=== PATIENT | male | born 1965 | race Caucasian/White ===

== ENCOUNTER 2020-12-12 15:30 | Inpatient (IN) ==
[2020-12-12] MEDS ORDERED: *HR* Metoprolol 5 MG/5 ML VIAL IVP STA ×3 (16:00→17:34)
[2020-12-12] MEDS ORDERED: 0.9 % Sodium Chloride 500 ML IVC ONE (16:57)
[2020-12-12] MEDS ORDERED: Isovue-370 500 ML BOTTLE IVP ONE (16:58)
[2020-12-12 17:12] LABS: Basophils # 0.1 K/mcL (0.0-0.2); Basophils % 0.5 %; Eosinophils # 0.3 K/mcL (0.0-0.6); Eosinophils % 2.2 %; Hemoglobin 16.3 g/dL (12.9-16.9); Immature Granulocytes % 0.4 % (0-4); Immature Platelets 15.6 % (1.1-6.1); Lymphocytes # 2.3 K/mcL (0.6-4.6); Mean Corpuscular HGB Conc 31.3 g/dL (31.6-35.5); Mean Corpuscular Hemoglobin 29.3 pg (28.0-33.3); Mean Corpuscular Volume 93.5 fL (83.0-100.0); Mean Platelet Volume 13.2 fL (9.4-12.4); Monocytes % 7.8 %; Platelet Count 238 K/mcL (140-400); Red Blood Count 5.56 M/mcL (4.19-5.50); Red Cell Distribution Width 13.2 % (11.5-14.5); Segmented Neutrophils % 71.1 %; White Blood Count 12.6 K/mcL (4.3-11.1)
[2020-12-12 17:32] LABS: Alanine Aminotransferase 28 Units/L (7-52); Albumin 4.3 g/dL (3.5-5.7); Albumin/Globulin Ratio 1.7 (1.1-2.2); Alkaline Phosphatase 127 Units/L (34-104); Aspartate Amino Transferase 21 Units/L (13-39); BUN/Creatinine Ratio 12 (6-26); Bilirubin,Direct 0.9 mg/dL (0.0-0.2); Bilirubin,Indirect 1.7 mg/dL (0.0-1.0); Bilirubin,Total 2.6 mg/dL (0.3-1.0); Blood Urea Nitrogen 18 mg/dL (6-20); Calcium 9.6 mg/dL (8.6-10.3); Carbon Dioxide 22 mEq/L (23-29); Chloride 101 mEq/L (98-107); Globulin 2.5 g/dL (2.4-3.5); Glucose 252 mg/dL (70-105); Osmolality,Calculated 290 (280-300); Potassium 4.4 mEq/L (3.5-5.1); Sodium 135 mEq/L (136-145); Total Protein 6.8 g/dL (6.4-8.9); eGFR For African Americans 59 (> 60); eGFR For Non-African Americans 49 (> 60)
[2020-12-12] MEDS ORDERED: Ondansetron 4 MG/2 ML VIAL IVP STA (17:36)
[2020-12-12 17:40] LABS: Troponin I < 0.03 ng/mL (< 0.04)
[2020-12-12] MEDS ORDERED: Furosemide 40 MG/4 ML VIAL IVP ONE (17:46)
[2020-12-12] MEDS: DilTIAZem 50 MG/50 ML IV.SOLN IVC SCH ×2 (18:51→23:39)
[2020-12-12 20:54] LABS: INR 1.4
[2020-12-12 21:07] LABS: Acetaminophen < 10 mcg/mL (10-20); Salicylate < 2.5 mg/dL (15.0-30.0)
[2020-12-12] MEDS ORDERED: Ondansetron 4 MG/2 ML VIAL IVP PRN (21:08)
[2020-12-12] MEDS ORDERED: Melatonin 3 MG TABLET PO PRN (21:08)
[2020-12-12] MEDS ORDERED: *HR* Promethazine 25 MG/ML VIAL IM PRN (21:08)
[2020-12-12] MEDS ORDERED: *HR* OxyCODONE Immed Rel 5 MG TABLET PO PRN (21:08)
[2020-12-12] MEDS ORDERED: Naloxone 0.4 MG/ML INJ IVP PRN (21:08)
[2020-12-12] MEDS ORDERED: Acetaminophen 325 MG TABLET PO PRN (21:08)
[2020-12-12] MEDS ORDERED: *HR* Heparin 5,000 UNIT/ML VIAL IVP ONE (21:33)
[2020-12-12] MEDS ORDERED: *HR* Heparin 5,000 UNIT/ML VIAL IVP PRN ×2 (21:33)
[2020-12-12] MEDS ORDERED: Dextrose Gel 15 GM/37.5 ML TUBE PO PRN ×2 (21:35)
[2020-12-12] MEDS ORDERED: *HR* Dextrose 50 % in Water (Vial) 50 ML VIAL IVP PRN (21:35)
[2020-12-12] MEDS ORDERED: D5% in Water 1,000 ML IVC PRN (21:35)
[2020-12-12] MEDS ORDERED: Perflutren Lipid Microsphere 1.3 ML in 0.9 % Sodium Chloride 8.7 ML IVP PRN (21:40)
[2020-12-12] MEDS: Insulin LISPRO 300 UNITS/3 ML VIAL SUBQ SCH (23:47)
[2020-12-12] MEDS: *HR* HYDROcodone/Acet 5/325 mg TABLET PO PRN (23:47)
[2020-12-13] MEDS: Albumin 25% 25gram/100mL 25 GM/100 ML IV.SOLN IVC SCH ×4 (00:57→05:04)
[2020-12-13] MEDS: Heparin 25,000UNIT/250ML 1/2NS 25,000 UNIT/250 ML IV.SOLN IVC SCH ×2 (00:58→20:17)
[2020-12-13 01:17] LABS: Hematocrit 51.2 % (37.5-50.1); Mean Corpuscular HGB Conc 31.3 g/dL (31.6-35.5); Mean Corpuscular Hemoglobin 29.2 pg (28.0-33.3); Mean Corpuscular Volume 93.4 fL (83.0-100.0); Mean Platelet Volume 12.7 fL (9.4-12.4); Platelet Count 263 K/mcL (140-400); Red Blood Count 5.48 M/mcL (4.19-5.50); Red Cell Distribution Width 13.2 % (11.5-14.5); White Blood Count 14.3 K/mcL (4.3-11.1)
[2020-12-13 01:25] LABS: Heparin anti-factor XA UFH 0.04 IU/mL (0.30-0.70); INR 1.5; Prothrombin Time 16.6 Seconds (9.4-12.1)
[2020-12-13 04:06] LABS: Basophils % 0.2 %; Mean Corpuscular HGB Conc 31.3 g/dL (31.6-35.5); Red Cell Distribution Width 13.3 % (11.5-14.5)
[2020-12-13 04:07] LABS: Eosinophils % 0.1 %; Hematocrit 50.4 % (37.5-50.1); Hemoglobin 15.8 g/dL (12.9-16.9); Immature Granulocytes % 0.6 % (0-4); Immature Platelets 14.6 % (1.1-6.1); Lymphocytes # 1.6 K/mcL (0.6-4.6); Mean Corpuscular Hemoglobin 29.6 pg (28.0-33.3); Mean Corpuscular Volume 94.4 fL (83.0-100.0); Mean Platelet Volume 13.1 fL (9.4-12.4); Monocytes # 1.4 K/mcL (0.0-1.3); Monocytes % 8.7 %; Neutrophils # 12.8 K/mcL (1.6-8.9); Platelet Count 255 K/mcL (140-400); Red Blood Count 5.34 M/mcL (4.19-5.50); Segmented Neutrophils % 80.4 %; White Blood Count 15.9 K/mcL (4.3-11.1)
[2020-12-13 04:21] LABS: INR 1.7; Prothrombin Time 19.2 Seconds (9.4-12.1)
[2020-12-13 06:16] LABS: Albumin 4.1 g/dL (3.5-5.7); Albumin/Globulin Ratio 1.9 (1.1-2.2); Calcium 9.1 mg/dL (8.6-10.3); Chol/HDL Ratio 4.5 (0-4.9); Globulin 2.2 g/dL (2.4-3.5); Magnesium 1.8 mg/dL (1.6-2.6); Phosphorous 5.2 mg/dL (2.7-4.5); Potassium 5.9 mEq/L (3.5-5.1); Total Protein 6.3 g/dL (6.4-8.9)
[2020-12-13] MEDS ORDERED: *HR* Dextrose 50 % in Water (Vial) 50 ML VIAL IVP ONE (06:54)
[2020-12-13] MEDS ORDERED: Insulin Human Regular 10 UNIT in 0.9 % Sodium Chloride 10 ML IV ONE (06:54)
[2020-12-13] MEDS ORDERED: Octreotide 50 MCG/ML INJ IVP ONE (06:58)
[2020-12-13] MEDS ORDERED: Insulin DETEMIR 100 UNIT/ML X5UNITS SUBQ ONE (07:28)
[2020-12-13] MEDS ORDERED: Insulin LISPRO 300 UNITS/3 ML VIAL SUBQ SCH ×2 (07:30→21:00)
[2020-12-13] MEDS ORDERED: Albumin 25% 25gram/100mL 25 GM/100 ML IV.SOLN IVPB SCH (08:00)
[2020-12-13] MEDS: Octreotide 400 MCG in 0.9 % Sodium Chloride 100 ML IVC SCH ×2 (11:09→17:53)
[2020-12-13] MEDS: SODIUM ZIRCONIUM CYCLOSILICATE 5 GM POWD.PACK PO SCH ×2 (11:21→21:45)
[2020-12-13] MEDS: Albumin 25% 25gram/100mL 25 GM/100 ML IV.SOLN IVPB SCH ×4 (11:22→20:13)
[2020-12-13] MEDS: Insulin LISPRO 300 UNITS/3 ML VIAL SUBQ SCH ×3 (11:35→20:36)
[2020-12-13 12:37] LABS: Estimated Average Glucose 217 mg/dl; Hemoglobin A1C 9.2 %
[2020-12-13 13:00] LABS: Thyroid Stimulating Hormone 4.144 mcIU/mL (0.340-5.600)
[2020-12-13] MEDS ORDERED: cefTRIAXone 1,000 MG in Water for inj. (sterile) 10 ML IVP SCH (13:00)
[2020-12-13 13:10] LABS: Hepatitis B Surface Antigen Nonreactive (Nonreactive)
[2020-12-13 13:12] LABS: Bacteria,Urine Few per hpf (None-Few); Bilirubin,Urine Small (Negative); Blood,Urine Negative (Negative); Clarity,Urine Turbid (Clear); Color,Urine Yellow (Yellow); Glucose,Urine (UA) 30 mg/dL (Normal); Hyaline Casts,Urine Few per lpf (None Seen); Ketones,Urine Negative (Negative); Leukocyte Esterase,Urine Negative (Negative); Mucus,Urine Few per lpf (None-Few); Nitrite,Urine Negative (Negative); PH,Urine 5.5 pH Units (5.0-8.0); Protein,Urine 100 mg/dL (Neg-Trace); Specific Gravity,Urine > 1.030 (1.010-1.025); Sperm,Urine Present per hpf (None Seen); Squamous Epithelial Cell,Urine Few per hpf (None-Few)
[2020-12-13 13:39] LABS: Hepatitis A Antibody IgM Nonreactive (Nonreactive); Hepatitis B Core IgM Nonreactive (Nonreactive); Hepatitis C Virus Antibody Nonreactive (Nonreactive)
[2020-12-13] MEDS: DilTIAZem SR (12hr) 60 MG CAP.ER.12H PO SCH ×2 (14:23→21:05)
[2020-12-13] MEDS: *HR* HYDROcodone/Acet 5/325 mg TABLET PO PRN (14:50)
[2020-12-13 14:58] LABS: Protein/Creatinine Ratio,Urine 0.8 mg/mg (0.00-0.20); Sodium, Urine 16.8 mEq/L
[2020-12-13 15:03] LABS: Total Protein,Peritoneal Fluid 3.2 g/dL
[2020-12-13 15:09] LABS: RBC,Peritoneal Fluid < 2000 RBC/mcL
[2020-12-13 16:05] LABS: Basophils,Peritoneal Fluid 0 %
[2020-12-13 16:06] LABS: Appearance of Peritoneal Fl CLEAR (Clear)
[2020-12-13] MEDS ORDERED: 0.9 % Sodium Chloride 500 ML IVC SCH (16:30)
[2020-12-13] MEDS: *HR* Heparin 5,000 UNIT/ML VIAL SQ SCH (17:02)
[2020-12-13] MEDS ORDERED: Ipratropium/Albuterol Neb 3 ML ONE (20:10)
[2020-12-13] MEDS ORDERED: Ipratropium/Albuterol Neb 3 ML IH ONE (20:11)
[2020-12-13 20:56] LABS: VBG HCO3 16 mEq/L (21-27); VBG PCO2 37 mmHg (41-51); VBG PH 7.23 pH Units (7.32-7.42); VBG PO2 59 mmHg (25-50)
[2020-12-13 20:57] LABS: Hematocrit 50.7 % (37.5-50.1); Hemoglobin 15.5 g/dL (12.9-16.9); Mean Corpuscular HGB Conc 30.6 g/dL (31.6-35.5); Mean Corpuscular Hemoglobin 29.8 pg (28.0-33.3); Mean Corpuscular Volume 97.5 fL (83.0-100.0); Mean Platelet Volume 12.9 fL (9.4-12.4); Platelet Count 240 K/mcL (140-400); Red Cell Distribution Width 13.6 % (11.5-14.5); White Blood Count 20.5 K/mcL (4.3-11.1)
[2020-12-13] MEDS ORDERED: 0.9 % Sodium Chloride 1,000 ML ONE (21:04)
[2020-12-13] MEDS ORDERED: *HR* LORazepam 2 MG/ML VIAL ONE (22:27)
[2020-12-13] MEDS ORDERED: *HR* LORazepam 2 MG/ML VIAL IVP ONE (22:48)
[2020-12-13] MEDS: Norepinephrine 4 MG/254 ML IV.SOLN IVC SCH (23:50)
[2020-12-13 23:58] LABS: Calcium 8.8 mg/dL (8.6-10.3); Potassium 5.6 mEq/L (3.5-5.1)
[2020-12-14 00:10] LABS: Troponin I 0.04 ng/mL (< 0.04)
[2020-12-14 00:22] LABS: ABG Base Excess -9 mEq/L (-2 to 3); ABG HCO3 15 mEq/L (21-27); ABG Oxygen Saturation 88 % (95-98); ABG PCO2 28 mmHg (35-45); ABG PH 7.34 pH Units (7.32-7.45); ABG PO2 58 mmHg (85-104); ABG TCO2 16 mEq/L (20-26)
[2020-12-14] MEDS: Albumin 25% 25gram/100mL 25 GM/100 ML IV.SOLN IVPB SCH ×3 (00:33→07:25)
[2020-12-14] MEDS: Octreotide 400 MCG in 0.9 % Sodium Chloride 100 ML IVC SCH ×2 (00:36→09:54)
[2020-12-14] MEDS ORDERED: Vancomycin 2,000 MG/520 ML IV.SOLN IVPB ONE (02:00)
[2020-12-14 04:25] VITALS: TEMP 98.4
[2020-12-14] MEDS: Norepinephrine 4 MG/254 ML IV.SOLN IVC SCH (05:04)
[2020-12-14] MEDS: *HR* Heparin 5,000 UNIT/ML VIAL SQ SCH (05:14)
[2020-12-14 05:55] LABS: Basophils % 0.2 %; Eosinophils % 0.2 %
[2020-12-14 05:57] LABS: Basophils # 0.1 K/mcL (0.0-0.2); Hematocrit 49.4 % (37.5-50.1); Hemoglobin 16.1 g/dL (12.9-16.9); Immature Granulocytes % 0.8 % (0-4); Lymphocytes # 4.1 K/mcL (0.6-4.6); Lymphocytes % 15.4 %; Mean Corpuscular HGB Conc 32.6 g/dL (31.6-35.5); Mean Corpuscular Hemoglobin 30.2 pg (28.0-33.3); Mean Corpuscular Volume 92.7 fL (83.0-100.0); Mean Platelet Volume 12.7 fL (9.4-12.4); Monocytes # 1.7 K/mcL (0.0-1.3); Monocytes % 6.5 %; Platelet Count 248 K/mcL (140-400); Red Blood Count 5.33 M/mcL (4.19-5.50); Red Cell Distribution Width 13.5 % (11.5-14.5); Segmented Neutrophils % 76.9 %; White Blood Count 26.4 K/mcL (4.3-11.1)
[2020-12-14] MEDS ORDERED: Cefepime HCl 1,000 MG in Water for inj. (sterile) 10 ML IVP SCH (06:00)
[2020-12-14 06:02] LABS: Eosinophils # 0.1 K/mcL (0.0-0.6); Neutrophils # 20.3 K/mcL (1.6-8.9)
[2020-12-14 06:04] LABS: Prothrombin Time 33.8 Seconds (9.4-12.1)
[2020-12-14 06:13] LABS: Magnesium 1.8 mg/dL (1.6-2.6)
[2020-12-14 06:40] LABS: Alanine Aminotransferase 2830 Units/L (7-52); Albumin 4.4 g/dL (3.5-5.7); Albumin/Globulin Ratio 2.8 (1.1-2.2); Alkaline Phosphatase 131 Units/L (34-104); Aspartate Amino Transferase > 3000 Units/L (13-39); BUN/Creatinine Ratio 11 (6-26); Bilirubin,Total 4.6 mg/dL (0.3-1.0); Blood Urea Nitrogen 39 mg/dL (6-20); Calcium 8.7 mg/dL (8.6-10.3); Carbon Dioxide 14 mEq/L (23-29); Chloride 101 mEq/L (98-107); Globulin 1.6 g/dL (2.4-3.5); Glucose 134 mg/dL (70-105); Osmolality,Calculated 281 (280-300); Platelet Estimate Normal (Normal); Potassium 6.2 mEq/L (3.5-5.1); Sodium 130 mEq/L (136-145); eGFR For African Americans 21 (> 60); eGFR For Non-African Americans 17 (> 60)
[2020-12-14] MEDS ORDERED: Calcium Gluconate 1gm/50mL 1 GM/50 ML BAG IVPB PRN (06:48)
[2020-12-14] MEDS ORDERED: Insulin Human Regular 10 UNIT in 0.9 % Sodium Chloride 10 ML IV ONE (06:48)
[2020-12-14] MEDS ORDERED: Lactulose 200 GM, Sodium Chloride IRRigation 700 ML RC ONE (06:52)
[2020-12-14] MEDS ORDERED: *HR* Dextrose 50 % in Water (Vial) 50 ML VIAL IVP ONE (07:00)
[2020-12-14] MEDS: DilTIAZem SR (12hr) 60 MG CAP.ER.12H PO SCH (07:32)
[2020-12-14] MEDS ORDERED: Lactulose Oral Soln 20 GM/30 ML UDC PO ONE (07:50)
[2020-12-14] MEDS: Insulin LISPRO 300 UNITS/3 ML VIAL SUBQ SCH (07:51)
[2020-12-14] MEDS ORDERED: Sodium Bicarbonate 150 MEQ in Water for inj. (sterile) 1,000 ML IVC SCH (08:00)
[2020-12-14] MEDS: SODIUM ZIRCONIUM CYCLOSILICATE 5 GM POWD.PACK PO SCH (08:07)
[2020-12-14 10:17] VITALS: BP 109/75; PULSE 101; O2SAT 99
[2020-12-16 15:34] LABS: Fluid Source for Albumin PERITONEAL
== END 2020-12-14 11:03 | disposition short-term general hospital (02) | DRG 432 ==
LOC: EMEROOARM 15:30 → 2ANU 15:30 → ICNU 12-13 20:52
PROVIDERS: ADMIT Internal Medicine; ATTEND Internal Medicine

== ENCOUNTER 2022-03-28 13:32 | Observation (INO) ==
[2022-03-28 14:37] LABS: Basophils # 0.1 K/mcL (0.0-0.2); Basophils % 0.7 %; Eosinophils # 0.6 K/mcL (0.0-0.6); Eosinophils % 4.4 %; Hematocrit 47.6 % (37.5-50.1); Hemoglobin 15.9 g/dL (12.9-16.9); Immature Granulocytes % 0.8 % (0-4); Lymphocytes # 2.6 K/mcL (0.6-4.6); Lymphocytes % 19.1 %; Mean Corpuscular HGB Conc 33.4 g/dL (31.6-35.5); Mean Corpuscular Hemoglobin 30.8 pg (28.0-33.3); Mean Corpuscular Volume 92.2 fL (83.0-100.0); Mean Platelet Volume 11.1 fL (9.4-12.4); Monocytes # 1.2 K/mcL (0.0-1.3); Monocytes % 8.7 %; Neutrophils # 8.9 K/mcL (1.6-8.9); Platelet Count 212 K/mcL (140-400); Red Blood Count 5.16 M/mcL (4.19-5.50); Red Cell Distribution Width 13.6 % (11.5-14.5); Segmented Neutrophils % 66.3 %; White Blood Count 13.4 K/mcL (4.3-11.1)
[2022-03-28 14:59] LABS: Calcium 9.8 mg/dL (8.6-10.3); Potassium 4.1 mEq/L (3.5-5.1); Troponin I 0.03 ng/mL (< 0.04)
[2022-03-28] MEDS ORDERED: Furosemide 40 MG/4 ML VIAL IVP ONE (18:25)
[2022-03-28] MEDS ORDERED: *HR* Metoprolol 5 MG/5 ML VIAL IVP ONE (18:30)
[2022-03-28] MEDS ORDERED: Naloxone 0.4 MG/ML INJ IVP PRN (19:25)
[2022-03-28] MEDS ORDERED: Ondansetron 4 MG/2 ML VIAL IVP PRN (19:25)
[2022-03-28] MEDS ORDERED: Melatonin 3 MG TABLET PO PRN (19:25)
[2022-03-28] MEDS ORDERED: Dextrose Gel 15 GM/37.5 ML TUBE PO PRN ×2 (20:49)
[2022-03-28] MEDS ORDERED: D5% in Water 1,000 ML IVC PRN (20:49)
[2022-03-28] MEDS ORDERED: *HR* Dextrose 50 % in Water (Syg) 50 ML SYRINGE IVP PRN (20:49)
[2022-03-28] MEDS ORDERED: Insulin LISPRO 300 UNITS/3 ML VIAL SUBQ SCH (21:00)
[2022-03-28 21:34] LABS: Albumin 4.3 g/dL (3.5-5.7); Albumin/Globulin Ratio 1.8 (1.1-2.2); Bilirubin,Direct 0.4 mg/dL (0.0-0.2); Bilirubin,Indirect 1.4 mg/dL (0.0-1.0); Bilirubin,Total 1.8 mg/dL (0.3-1.0); Chol/HDL Ratio 5.6 (0-4.9); Globulin 2.4 g/dL (2.4-3.5); Magnesium 1.5 mg/dL (1.6-2.6); Phosphorous 4.3 mg/dL (2.7-4.5); Total Protein 6.7 g/dL (6.4-8.9)
[2022-03-28 23:08] LABS: Bacteria,Urine Few per hpf (None-Few); Bilirubin,Urine Negative (Negative); Blood,Urine Negative (Negative); Clarity,Urine Turbid (Clear); Color,Urine Light-Orange (Yellow); Glucose,Urine (UA) Normal (Normal); Hyaline Casts,Urine Many per lpf (None Seen); Ketones,Urine Negative (Negative); Leukocyte Esterase,Urine Negative (Negative); Mucus,Urine Few per lpf (None-Few); Nitrite,Urine Negative (Negative); PH,Urine 5.5 pH Units (5.0-8.0); Protein,Urine 30 mg/dL (Neg-Trace); Squamous Epithelial Cell,Urine Few per hpf (None-Few)
[2022-03-29] MEDS ORDERED: *HR* Heparin 5,000 UNIT/ML VIAL SQ SCH (06:00)
[2022-03-29 06:01] LABS: Basophils # 0.1 K/mcL (0.0-0.2); Basophils % 0.7 %; Eosinophils # 0.6 K/mcL (0.0-0.6); Eosinophils % 5.7 %; Hematocrit 42.6 % (37.5-50.1); Immature Granulocytes % 0.7 % (0-4); Lymphocytes # 2.2 K/mcL (0.6-4.6); Lymphocytes % 20.4 %; Mean Corpuscular HGB Conc 33.3 g/dL (31.6-35.5); Mean Corpuscular Hemoglobin 30.4 pg (28.0-33.3); Mean Corpuscular Volume 91.2 fL (83.0-100.0); Mean Platelet Volume 11.7 fL (9.4-12.4); Monocytes % 8.9 %; Neutrophils # 6.8 K/mcL (1.6-8.9); Platelet Count 174 K/mcL (140-400); Red Blood Count 4.67 M/mcL (4.19-5.50); Red Cell Distribution Width 13.6 % (11.5-14.5); Segmented Neutrophils % 63.6 %; White Blood Count 10.8 K/mcL (4.3-11.1)
[2022-03-29 06:05] LABS: Hemoglobin 14.2 g/dL (12.9-16.9)
[2022-03-29 06:09] LABS: INR 1.6
[2022-03-29 06:12] LABS: Activated Partial Thrombo Time 36.2 Seconds (26.0-36.0)
[2022-03-29 06:19] LABS: Calcium 9.3 mg/dL (8.6-10.3); Potassium 3.8 mEq/L (3.5-5.1)
[2022-03-29] MEDS: Insulin LISPRO 300 UNITS/3 ML VIAL SUBQ SCH ×4 (07:11→17:19)
[2022-03-29] MEDS: Metoprolol XL (24 HR) Succ 50 MG TAB.ER.24H PO SCH (08:36)
[2022-03-29] MEDS: Aspirin Enteric Coated 81 MG Tablet PO SCH (08:37)
[2022-03-29] MEDS: Furosemide 20 MG/2 ML VIAL IVP SCH ×3 (10:40→21:19)
[2022-03-29] MEDS ORDERED: *HR* Rivaroxaban 10 MG TABLET PO SCH (18:00)
[2022-03-29] MEDS ORDERED: Furosemide 40 MG/4 ML VIAL IVP SCH (21:00)
[2022-03-29] MEDS ORDERED: Insulin LISPRO 300 UNITS/3 ML VIAL SUBQ SCH (21:00)
[2022-03-29] MEDS ORDERED: Insulin DETEMIR 100 UNIT/ML X5UNITS SUBQ SCH (21:00)
[2022-03-30 00:09] VITALS: TEMP 97.6
[2022-03-30 05:18] LABS: Basophils # 0.1 K/mcL (0.0-0.2); Basophils % 0.6 %; Eosinophils # 0.5 K/mcL (0.0-0.6); Eosinophils % 4.7 %; Hemoglobin 13.7 g/dL (12.9-16.9); Immature Granulocytes % 0.5 % (0-4); Lymphocytes % 19.3 %; Mean Corpuscular HGB Conc 32.6 g/dL (31.6-35.5); Mean Corpuscular Hemoglobin 30.6 pg (28.0-33.3); Mean Platelet Volume 12.3 fL (9.4-12.4); Monocytes # 0.8 K/mcL (0.0-1.3); Monocytes % 8.1 %; Neutrophils # 6.9 K/mcL (1.6-8.9); Platelet Count 166 K/mcL (140-400); Red Blood Count 4.47 M/mcL (4.19-5.50); Red Cell Distribution Width 13.5 % (11.5-14.5); Segmented Neutrophils % 66.8 %; White Blood Count 10.3 K/mcL (4.3-11.1)
[2022-03-30 05:37] LABS: Potassium 4.1 mEq/L (3.5-5.1)
[2022-03-30 05:43] LABS: Estimated Average Glucose 171 mg/dl; Hemoglobin A1C 7.6 %
[2022-03-30] MEDS: Insulin LISPRO 300 UNITS/3 ML VIAL SUBQ SCH ×2 (08:20→12:11)
[2022-03-30] MEDS: Aspirin Enteric Coated 81 MG Tablet PO SCH (08:20)
[2022-03-30] MEDS: Furosemide 20 MG/2 ML VIAL IVP SCH (08:20)
[2022-03-30] MEDS: Metoprolol XL (24 HR) Succ 50 MG TAB.ER.24H PO SCH (08:20)
[2022-03-30 11:41] VITALS: BP 128/87; PULSE 96; O2SAT 98
[2022-03-30 12:55] LABS: Total Volume 24 Hour,Urine 0.35 Liters (0.80-1.80)
[2022-03-30 13:07] LABS: Sodium, Urine 57.4 mEq/L
== END 2022-03-30 15:24 | disposition home or self-care (01) ==
LOC: EMEROOARM 13:32 → 3BNU 13:32 → SUATTDRO 19:25 → 3BNU 20:15
PROVIDERS: ADMIT Internal Medicine; ATTEND Registered Nurse